=== PATIENT | female | born 1995 | race Two or more races ===

== ENCOUNTER 2020-04-02 20:47 | Emergency (ER) | payer OTHER ==
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
[2020-04-03] MEDS ORDERED: ACETAMINOPHEN 325 MG TABLET PO ONE (00:48)
[2020-04-03] MEDS ORDERED: LIDOCAINE 5% (700 MG) TRANSDERMAL ADH..PATCH TP ONE (00:48)
[2020-04-03] MEDS ORDERED: CYCLOBENZAPRINE HCL 10 MG TABLET PO ONE (00:48)
[2020-04-03] MEDS ORDERED: IBUPROFEN 600 MG TABLET PO ONE (00:48)
[2020-04-03 01:41] VITALS: BP 135/88
== END 2020-04-03 01:20 | disposition home or self-care (01) ==
LOC: EDBD → ER 20:47
DX: S22.41XA Multiple fractures of ribs, right side, initial encounter for closed fracture (principal); Y08.89XA Assault by other specified means, initial encounter; Z32.02 Encounter for pregnancy test, result negative
CPT/HCPCS: 36415; 84703; 99284